=== PATIENT | female | born 2000 | race Caucasian/White ===

== ENCOUNTER 2025-05-19 16:45 | Emergency (ER) | payer OTHER ==
[~2025-05-19] VITALS: Ht 162.6 cm; Wt 59.0 kg
[2025-05-19] MEDS ORDERED: FAMOtidine 10 MG/ML (4ML VIAL) IV PUSH ONE (18:15)
[2025-05-19] MEDS ORDERED: ACETAMINOPHEN 325 MG TABLET PO ONE (18:15)
[2025-05-19] MEDS ORDERED: ONDANSETRON HCL 2 MG/ML VIAL IV ONE (18:15)
[2025-05-19] MEDS ORDERED: 0.9 % SODIUM CHLORIDE 1,000 ML IV ONE (18:15)
[2025-05-19 18:44] LABS: BASO % 0.2 % (0.1-1.2); EOS # 0.01 (0.04-0.54); EOS % 0.2 % (0.7-7.0); LYMPH # 0.32 (1.18-3.74); LYMPH % 5.3 % (19.3-53.1); MEAN PLATELET VOLUME 8.50 fl (9.4-12.4); MONO # 0.40 (0.24-0.82); MONO % 6.6 % (4.7-12.5); NEUT # 5.28 (1.56-6.13); NEUT % 87.4 % (34.0-71.1); RED CELL DISTRIBUTION WIDTH 12.6 % (11.6-14.4)
[2025-05-19] MEDS ORDERED: KETOROLAC TROMETHAMINE 30 MG VIAL IV ONE (20:00)
[2025-05-19 20:05] LABS: ALT/SGPT 23 U/L (12-78); AST/SGOT 17 U/L (15-37); BILIRUBIN TOTAL 0.34 mg/dL (0.3-1.2); BUN CREA RATIO 16 (7.0-25.0); CREATININE SERUM 0.63 mg/dL (0.55-1.02); GFR 116.10; GLOBULINA 4.0 G/DL (2.4-3.5); GLUCOSE FASTING 85 mg/dL (65-100); OSMOLALITY SERUM 272 MOSM/KG (275-295)
[2025-05-19 20:06] LABS: HCG QUANTITATIVE < 1 mUI/mL (1-3)
[2025-05-19 20:37] LABS: COVID-19 AG POSITIVE (NEGATIVE)
[2025-05-19 20:53] LABS: URINE APPEARANCE Clear; URINE BILIRRUBIN Negative (NEGATIVE); URINE BLOOD Negative; URINE COLOR Yellow; URINE GLUCOSE Negative (NEGATIVE); URINE KETONE 15 (NEGATIVE); URINE LEUKOCYTE Negative; URINE NITRATE Negative; URINE PROTEIN Negative (NEGATIVE); URINE UROBILINOGEN 0.2 E.U./dl
[2025-05-19 20:57] LABS: URINE BACTERIA 1694.3 uL (0.0-1933); URINE EPITHELIAL CELLS 19.5 uL (0.0-38.8); URINE RBC 3.2 uL (0.0-20.8); URINE WBC 35.9 uL (0.0-23.2)
[2025-05-19 21:11] LABS: URINE CAST 0.14 uL (0.0-1.40)
[2025-05-19 21:16] LABS: URINE YEAST NEGATIVE /hpf
== END 2025-05-19 21:14 | disposition home or self-care (01) ==
LOC: ER 16:45
PROVIDERS: General Practice
DX: U07.1 COVID-19 (principal); R50.9 Fever, unspecified; R53.1 Weakness; Z88.1 Allergy status to other antibiotic agents